=== PATIENT | male | born 1980 | race American Indian/Alaskan Native ===

== ENCOUNTER 2016-04-04 16:22 | Emergency (ER) | payer MEDICARE ==
[2016-04-04 17:23] VITALS: BP 158/100
[2016-04-04] MEDS ORDERED: BOOSTRIX IM ONE (17:58)
[2016-04-04] MEDS ORDERED: TRIPLE ANTIBIOTIC TP ONE (18:00)
[2016-04-04] MEDS ORDERED: KEFLEX PO ONE (18:00)
--- NOTE | 2016-04-04 18:02 | Emergency Department Report ---
ED Laceration HPI - HPI Chief Complaint: Wound/Laceration Stated Complaint: LEFT ARM LAC 3 DAYS AGO Time Seen by Provider: 04/04/16 17:32 Occurred When: Before Yesterday Location: Upper Extremity Severity: mild Tetanus Status: Not up to Date Laceration Symptoms: No Foreign Body Sensation, No Numbness, No Weakness, No Pain Other History: 35-year-old male past medical history bipolar disorder presents with complaint of superficial laceration to left forearm volar aspect. Visible linear superficial laceration approximately 4 cm in length. Patient states that he was throwing out a piece of wood with a nail sticking out approximately 3 days ago. As he tossed a piece of wood the nail scraped his forearm. Minimal to no bleeding, barely any subcutaneous tissue exposed. Wound is not gaping. Patient did not seek medical attention until today because he thought it was very superficial. Site has become slightly red patient denies any pus drainage no fever no chills no numbness or tingling or dysfunction reported by patient and left forearm and wrist patient denies any other injuries, states he does not know when he had his last tetanus shot ED Review of Systems ROS: Stated complaint: LEFT ARM LAC 3 DAYS AGO Other details as noted in HPI Constitutional: denies: chills, fever Eyes: denies: eye pain, eye discharge, vision change ENT: denies: ear pain, throat pain Respiratory: denies: cough, shortness of breath, wheezing Cardiovascular: denies: chest pain, palpitations Endocrine: no symptoms reported Gastrointestinal: denies: abdominal pain, nausea, diarrhea Genitourinary: denies: urgency, dysuria Musculoskeletal: denies: back pain, joint swelling, arthralgia Skin: as per HPI. denies: rash, lesions Neurological: denies: headache, weakness, paresthesias Psychiatric: denies: anxiety, depression Hematological/Lymphatic: denies: easy bleeding, easy bruising ED Past Medical Hx - Past Medical History Hx Hypertension: Yes Hx Psychiatric Treatment: Yes (bipolar, paranoid schizophrenic.) - Surgical History Hx Appendectomy: Yes Additional Surgical History: bowel obstruction repair - Social History Smoking Status: Current Every Day Smoker Substance Use Type: Alcohol, Marijuana - Medications Home Medications: Home Medications Medication Instructions Recorded Confirmed Last Taken Type Clotrimazole 1% [Lotrimin 1%] 1 applic TP BID #1 tube 10/03/14 05/06/15 Unknown Rx Hydrocortisone 1% [Hydrocortisone 1 applicatio TP TID #1 tube 12/05/14 05/06/15 Unknown Rx 1% CREAM] Divalproex Dr [DepaKOTE DR] 500 mg PO BID 05/06/15 05/06/15 Unknown History Paliperidone Palmitate [Invega 78 mg IM QMONTH 05/06/15 05/06/15 04/20/15 History Sustenna] QUEtiapine [SEROquel] 250 mg PO DAILY 05/06/15 05/06/15 Unknown History Cephalexin [Keflex] 500 mg PO Q12HR #14 cap 04/04/16 Unknown Rx Ibuprofen [Motrin] 400 mg PO Q8H PRN #20 tablet 04/04/16 Unknown Rx Neomy/Baci/Polymyx Oint [Triple 15 gm TP BID #1 oint 04/04/16 Unknown Rx Antibiotic] Sulfamethoxazole/Trimethoprim 1 each PO BID #14 tablet 04/04/16 Unknown Rx [Bactrim DS TAB] Laceration Physical Exam - Exam General: Vital signs noted. No distress. Alert and acting appropriately. Wound Length (cm): 4 Laceration Location: Upper Extremity Full Body Front + Back: 1 - 4cm superficial laceration volar left mid forearm, no subQ tissue exposed, minro surroundign erythema, no fluctuance. Laceration Exam: Yes Normal Distal CMS, No Foreign Body, No Exposed Tendon, Vessel, or Nerve, No Tendon Injury ED Course Vital Signs 04/04/16 17:10 Temperature 98.9 F Pulse Rate 57 L Respiratory 18 Rate Blood Pressure 158/100 O2 Sat by Pulse 99 Oximetry ED Medical Decision Making - Medical Decision Making A/P: Simple superficial laceration/deep abrasion, early cellulitis 1-as patient states that this occurred 3 days ago and laceration is very superficial and linear and not gaping no indication for closure at this time. Wound cleaned with povidone-iodine iodine and saline. Wound is more of a deep abrasion than a significant laceration 2-triple antibiotic ointment placed over the site with gauze wrap 3-Tdap updated today 4-Bactrim and Keflex twice a day 1 week. I'm placing patient on antibiotics because he states that this piece of wood was extremely dirty and in a junkyard. Patient also has signs of very mild early cellulitis including erythema and hyperesthesia surrounding site immediately adjacent no palpable abscess or fluctuance 5- I advised patient to return to the ED if redness worsens or if he has any pus drainage or worsening induration and site Critical care attestation.: If time is entered above; I have spent that time in minutes in the direct care of this critically ill patient, excluding procedure time. ED Disposition Clinical Impression: Forearm laceration Qualifiers: Encounter type: initial encounter Laterality: left Qualified Code(s): S51.812A - Laceration without foreign body of left forearm, initial encounter Abrasion forearm Qualifiers: Encounter type: initial encounter Laterality: left Qualified Code(s): S50.812A - Abrasion of left forearm, initial encounter Disposition: DISCHARGED TO HOME OR SELFCARE Is pt being admited?: No Does the pt Need Aspirin: No Condition: Stable Instructions: Diphtheria/Tetanus Vaccine (Injection), Laceration (ED), Acute Wound Care (ED), Abrasion (ED) Prescriptions: Sulfamethoxazole/Trimethoprim [Bactrim DS TAB] 1 each PO BID #14 tablet Cephalexin [Keflex] 500 mg PO Q12HR #14 cap Ibuprofen [Motrin] 400 mg PO Q8H PRN #20 tablet PRN Reason: Pain Neomy/Baci/Polymyx Oint [Triple Antibiotic] 15 gm TP BID #1 oint Referrals: PRIMARY CARE, [Primary Care Provider] - 3-5 Days Time of Disposition: 18:24
== END 2016-04-04 18:31 | disposition home or self-care (01) ==
LOC: ED 16:22
DX: S51.812A Laceration without foreign body of left forearm, initial encounter (principal); S50.812A Abrasion of left forearm, initial encounter; I10 Essential (primary) hypertension; F31.9 Bipolar disorder, unspecified; F20.9 Schizophrenia, unspecified; F17.200 Nicotine dependence, unspecified, uncomplicated; F12.10 Cannabis abuse, uncomplicated; W45.8XXA Other foreign body or object entering through skin, initial encounter; Y93.9 Activity, unspecified; Y92.9 Unspecified place or not applicable; Y99.9 Unspecified external cause status
CPT/HCPCS: 90471; 90715; A6250

== ENCOUNTER 2016-11-02 12:28 | Emergency (ER) | payer MEDICARE ==
[2016-11-02 13:08] LABS: Urine Drugs of Abuse Note Disclamer
[2016-11-02 13:21] LABS: Bilirubin,Urine NEG (Negative); Blood,Urine NEG (Negative); Ketones,Urine NEG (Negative); Leukocyte Esterase,Urine NEG (Negative); Mucus,Urine 3+ /HPF; Nitrite,Urine NEG (Negative)
[2016-11-02 13:44] LABS: Basophils % (Auto) 1.2 % (0.0-1.8); Eosinophils % (Auto) 3.2 % (0.0-4.3); Hematocrit 40.6 % (35.5-45.6); Hemoglobin 13.2 gm/dl (11.8-15.2); Mean Corpuscular HGB Conc 33 % (32-34); Mean Corpuscular Hemoglobin 27 pg (28-32); Mean Corpuscular Volume 83 fl (84-94); Platelet Count 203 K/mm3 (140-440); Red Blood Count 4.88 M/mm3 (3.65-5.03); Red Cell Distribution Width 15.5 % (13.2-15.2); White Blood Count 4.8 K/mm3 (4.5-11.0)
[2016-11-02 13:58] LABS: Anion Gap 18 mmol/L; Blood Urea Nitrogen 10 mg/dL (9-20); Calcium 8.8 mg/dL (8.4-10.2); Carbon Dioxide 23 mmol/L (22-30); Chloride 104.1 mmol/L (98-107); Glucose 88 mg/dL (75-100); Potassium 3.7 mmol/L (3.6-5.0); Sodium 141 mmol/L (137-145)
--- NOTE | 2016-11-02 15:16 | Emergency Department Report ---
ED Psych HPI - General Chief Complaint: Psych Stated Complaint: HOMICIDAL/MH Time Seen by Provider: 11/02/16 14:40 Source: patient Mode of arrival: Ambulatory - History of Present Illness Initial Comments: Patient is a 36-year-old male with a known psychiatric history here with complaints of homicidal ideation. Patient states that he has been through a very difficult time lately and is feeling like he was harmed his roommate. He is also having some occasional auditory hallucinations and is paranoid. States he has not been taking his psychiatric medications for some time. No chest pain shortness of breath fever chills cough nausea vomiting. MD Complaint: other (homicidal ideation) Associated Psychiatric Symptoms: depression, homicidal ideation Quality: constant Improves With: none Worsens With: none Context: significant life stressor Associated Symptoms: insomnia. denies: confusion, headache, shortness of breath , nausea, vomiting, syncope, other - Related Data Home Medications Medication Instructions Recorded Confirmed Last Taken Divalproex Dr [DepaKOTE DR] 500 mg PO BID 05/06/15 05/06/15 Unknown Paliperidone Palmitate [Invega 78 mg IM QMONTH 05/06/15 05/06/15 04/20/15 Sustenna] QUEtiapine [SEROquel] 250 mg PO DAILY 05/06/15 05/06/15 Unknown Previous Rx's Medication Instructions Recorded Last Taken Type Clotrimazole 1% [Lotrimin 1%] 1 applic TP BID #1 tube 10/03/14 Unknown Rx Hydrocortisone 1% [Hydrocortisone 1 applicatio TP TID #1 tube 12/05/14 Unknown Rx 1% CREAM] Cephalexin [Keflex] 500 mg PO Q12HR #14 cap 04/04/16 Unknown Rx Ibuprofen [Motrin] 400 mg PO Q8H PRN #20 tablet 04/04/16 Unknown Rx Neomy/Baci/Polymyx Oint [Triple 15 gm TP BID #1 oint 04/04/16 Unknown Rx Antibiotic] Sulfamethoxazole/Trimethoprim 1 each PO BID #14 tablet 04/04/16 Unknown Rx [Bactrim DS TAB] Allergies Allergy/AdvReac Type Severity Reaction Status Date / Time baclofen Allergy Unknown Verified 11/02/16 12:38 lithium Allergy TWITCH Verified 11/02/16 12:38 ED Review of Systems ROS: Stated complaint: HOMICIDAL/MH Other details as noted in HPI Comment: All other systems reviewed and negative Constitutional: denies: chills, fever Eyes: denies: eye pain, eye discharge, vision change ENT: denies: ear pain, throat pain Respiratory: denies: cough, shortness of breath, wheezing Cardiovascular: denies: chest pain, palpitations Endocrine: no symptoms reported Gastrointestinal: denies: abdominal pain, nausea, diarrhea Genitourinary: denies: urgency, dysuria Musculoskeletal: denies: back pain, joint swelling, arthralgia Skin: denies: rash, lesions Neurological: denies: headache, weakness, paresthesias Psychiatric: depression, auditory hallucinations, homicidal thoughts. denies: anxiety Hematological/Lymphatic: denies: easy bleeding, easy bruising ED Past Medical Hx - Past Medical History Previous Medical History?: Yes Hx Hypertension: Yes Hx Psychiatric Treatment: Yes (bipolar, paranoid schizophrenic.) - Surgical History Past Surgical History?: Yes Hx Appendectomy: Yes Additional Surgical History: bowel obstruction repair - Family History Family history: no significant - Social History Smoking Status: Current Every Day Smoker Substance Use Type: Cocaine, Marijuana - Medications Home Medications: Home Medications Medication Instructions Recorded Confirmed Last Taken Type Clotrimazole 1% [Lotrimin 1%] 1 applic TP BID #1 tube 10/03/14 05/06/15 Unknown Rx Hydrocortisone 1% [Hydrocortisone 1 applicatio TP TID #1 tube 12/05/14 05/06/15 Unknown Rx 1% CREAM] Divalproex [DepaKOSERGIO DR] 500 mg PO BID 05/06/15 05/06/15 Unknown History Paliperidone Palmitate [Invega 78 mg IM QMONTH 05/06/15 05/06/15 04/20/15 History Sustenna] QUEtiapine [SEROquel] 250 mg PO DAILY 05/06/15 05/06/15 Unknown History Cephalexin [Keflex] 500 mg PO Q12HR #14 cap 04/04/16 Unknown Rx Ibuprofen [Motrin] 400 mg PO Q8H PRN #20 tablet 04/04/16 Unknown Rx Neomy/Baci/Polymyx Oint [Triple 15 gm TP BID #1 oint 04/04/16 Unknown Rx Antibiotic] Sulfamethoxazole/Trimethoprim 1 each PO BID #14 tablet 04/04/16 Unknown Rx [Bactrim DS TAB] ED Physical Exam - General Limitations: No Limitations General appearance: alert, in no apparent distress - Head Head exam: Present: atraumatic, normocephalic - Eye Eye exam: Present: normal appearance - ENT ENT exam: Present: mucous membranes moist - Neck Neck exam: Present: normal inspection - Respiratory Respiratory exam: Present: normal lung sounds bilaterally. Absent: respiratory distress - Cardiovascular Cardiovascular Exam: Present: regular rate, normal rhythm. Absent: systolic murmur, diastolic murmur, rubs, gallop - GI/Abdominal GI/Abdominal exam: Present: soft, normal bowel sounds - Rectal Rectal exam: Present: deferred - Extremities Exam Extremities exam: Present: normal inspection - Back Exam Back exam: Present: normal inspection - Neurological Exam Neurological exam: Present: alert, oriented X3 - Psychiatric Psychiatric exam: Present: normal affect, normal mood - Skin Skin exam: Present: warm, dry, intact, normal color. Absent: rash ED Course Vital Signs 11/02/16 11/02/16 12:39 14:54 Temperature 98.7 F 98.6 F Pulse Rate 58 L 50 L Respiratory 18 18 Rate Blood Pressure 141/70 Blood Pressure 143/76 [Right] O2 Sat by Pulse 99 99 Oximetry ED Medical Decision Making - Lab Data Result diagrams: 11/02/16 13:22 11/02/16 13:22 Laboratory Results - last 24 hr 11/02/16 11/02/16 11/02/16 13:22 13:22 13:22 WBC 4.8 RBC 4.88 Hgb 13.2 Hct 40.6 MCV 83 L MCH 27 L MCHC 33 RDW 15.5 H Plt Count 203 Lymph % (Auto) 40.6 H Calloway % (Auto) 6.9 Eos % (Auto) 3.2 Baso % (Auto) 1.2 Lymph # 1.9 Calloway # 0.3 Eos # 0.2 Baso # 0.1 Seg Neutrophils % 48.1 Seg Neutrophils # 2.3 Sodium 141 Potassium 3.7 Chloride 104.1 Carbon Dioxide 23 Anion Gap 18 BUN 10 Creatinine 0.8 Estimated GFR > 60 BUN/Creatinine Ratio 12.50 Glucose 88 Calcium 8.8 Urine Color Urine Turbidity Urine pH Ur Specific Atlantic Urine Protein Urine Glucose (UA) Urine Ketones Urine Blood Urine Nitrite Urine Bilirubin Urine Urobilinogen Ur Leukocyte Esterase Urine WBC (Auto) Urine RBC (Auto) Urine Mucus Urine Opiates Screen Urine Methadone Screen Ur Barbiturates Screen Ur Phencyclidine Scrn Ur Amphetamines Screen U Benzodiazepines Scrn Urine Cocaine Screen U Marijuana (THC) Screen Drugs of Abuse Note Plasma/Serum Alcohol < 0.01 11/02/16 11/02/16 Unknown Unknown WBC RBC Hgb Hct MCV MCH MCHC RDW Plt Count Lymph % (Auto) Calloway % (Auto) Eos % (Auto) Baso % (Auto) Lymph # Calloway # Eos # Baso # Seg Neutrophils % Seg Neutrophils # Sodium Potassium Chloride Carbon Dioxide Anion Gap BUN Creatinine Estimated GFR BUN/Creatinine Ratio Glucose Calcium Urine Color Yellow Urine Turbidity Clear Urine pH 5.0 Ur Specific Atlantic 1.030 Urine Protein 30 mg/dl Urine Glucose (UA) Neg Urine Ketones Neg Urine Blood Neg Urine Nitrite Neg Urine Bilirubin Neg Urine Urobilinogen 4.0 Ur Leukocyte Esterase Neg Urine WBC (Auto) 1.0 Urine RBC (Auto) 2.0 Urine Mucus 3+ Urine Opiates Screen Presumptive negative Urine Methadone Screen Presumptive negative Ur Barbiturates Screen Presumptive negative Ur Phencyclidine Scrn Presumptive negative Ur Amphetamines Screen Presumptive negative U Benzodiazepines Scrn Presumptive negative Urine Cocaine Screen Presumptive negative U Marijuana (THC) Screen Presumptive positive Drugs of Abuse Note Disclamer Plasma/Serum Alcohol - Medical Decision Making 36-year-old male here with homicidal ideation and depression. Patient will be placed on a 1013 hold and evaluated by psychiatry. He is medically clear for psychiatric evaluation at this point. Critical care attestation.: If time is entered above; I have spent that time in minutes in the direct care of this critically ill patient, excluding procedure time. ED Disposition Clinical Impression: Homicidal ideation, Depression Disposition: [id number] PSY HOSP/PSY UNIT Is pt being admited?: No Condition: Stable Referrals: PRIMARY CARE, [Primary Care Provider] - 3-5 Days
--- NOTE | 2016-11-03 10:48 | Consultation ---
History of Present Illness - Reason for Consult Consult date: 11/03/16 Reason for consult: Mental Health Evaluation Requesting physician: FRANCIS WARREN - Chief Complaint Chief complaint: "I just need help with how I feel" - History of Present Psychiatric Illness Patient is a 36-year-old male with a known psychiatric history here with complaints of HI's. Today patient is calm and cooperative during the assessment. He stated that he had a argument with the his long term ([employer] [facility]) director "[employer] He stated that this argument took him "over the top" because he was already dealing with other stressors (seeing demons, hearing voices, and being irritable). Per the patient, these perceptional disturbances has been active for months, but increased the last week. He stated that the the demons he see and the voices he hear tell him that he "isn't worth anything" and to kill himself. Also, he stated that the voices were telling him to "kill" Pastor Craft. The patient stated that he does not want to return to the long term, because he don't trust the director. He stated that he have not seen a psychiatrist or taking his medications in 6 months. Patient stated that he took Seroquel, Risperdal, and the Invega injection in the past. He stated that the Seroquel was effective. He could not confirm or deny SI's, but admit to HI's and AVH's. He stated sleep disturbance (problems starting sleep), but denies a poor appetite. He admit to smoking marijuana often and denies excessive alcohol consumption (etoh). Medications and Allergies Allergies Allergy/AdvReac Type Severity Reaction Status Date / Time baclofen Allergy Unknown Verified 11/02/16 12:38 lithium Allergy TWITCH Verified 11/02/16 12:38 Home Medications Medication Instructions Recorded Confirmed Last Taken Type Clotrimazole 1% [Lotrimin 1%] 1 applic TP BID #1 tube 10/03/14 05/06/15 Unknown Rx Hydrocortisone 1% [Hydrocortisone 1 applicatio TP TID #1 tube 12/05/14 05/06/15 Unknown Rx 1% CREAM] Divalproex [Ron PALMA] 500 mg PO BID 05/06/15 05/06/15 Unknown History Paliperidone Palmitate [Invega 78 mg IM QMONTH 05/06/15 05/06/15 04/20/15 History Sustenna] QUEtiapine [SEROquel] 250 mg PO DAILY 05/06/15 05/06/15 Unknown History Cephalexin [Keflex] 500 mg PO Q12HR #14 cap 04/04/16 Unknown Rx Ibuprofen [Motrin] 400 mg PO Q8H PRN #20 tablet 04/04/16 Unknown Rx Neomy/Baci/Polymyx Oint [Triple 15 gm TP BID #1 oint 04/04/16 Unknown Rx Antibiotic] Sulfamethoxazole/Trimethoprim 1 each PO BID #14 tablet 04/04/16 Unknown Rx [Bactrim DS TAB] Past psychiatric history - Past Medical History Past Medical History: hypertension Past Surgical History: No surgical history - past Psychiatric treatment and history Psych: Bipolar, Psychosis psychiatric treatment history: Inpatient psy setting 6 months ago in [place]. Denies a fam psy hx. - Social History Social history: other (Reside in a long term) Mental Status Exam - Vital signs Last Vital Signs Temp 98.6 F 11/02/16 14:54 Pulse 80 11/03/16 00:07 Resp 17 11/03/16 00:07 BP 130/78 11/03/16 00:07 Pulse Ox 99 11/03/16 00:07 - Exam Narrative exam: ROS: (+) psychosis/manic MSE: Appearance: calm, cooperative Behavior: regular eye contact Speech: regular rate and tone Mood: "just tired" Affect: labile Thought Process: circumstantial Thought Content: admit to multiple percerptional disturbances Motor Activity: ambulatory Cognition: A/Ox 3 Insight: variable Judgment: limited Results Result Diagrams: 11/02/16 13:22 11/02/16 13:22 Abnormal lab results 11/02/16 Range/Units 13:22 MCV 83 L (84-94) fl MCH 27 L (28-32) pg RDW 15.5 H (13.2-15.2) % Lymph % (Auto) 40.6 H (13.4-35.0) % All other labs normal. Assessment and Plan Assessment and plan: Impression: Historical Dx: Bipolar DO. Unspecified Mood DO with psychotic features. Substance Use DO (marijuana). Today patient is calm and cooperative during the assessment. DDx: Schizoaffective DO Recommendation/Plan: Continue 1013 with placement to inpatient psy services. Start Depakote 500 mg PO BID for mood and Seroquel 200 mg PO HS for mood/ psychotic symptoms. Discussed possible metabolic side effects of Seroquel with patient. [facility] Police notified of patient's HI's toward the long term director Pastor Hubbard [facility] Police rep stated that someone will come see patient in ER. LFT ordered.
[2016-11-03 11:47] LABS: Alanine Aminotransferase 20 units/L (7-56); Alkaline Phosphatase 66 units/L (35-129)
[2016-11-03 14:55] VITALS: BP 136/76
== END 2016-11-03 18:39 ==
LOC: EEVIPCON 12:28 → ED 12:28
DX: F31.9 Bipolar disorder, unspecified (principal); I10 Essential (primary) hypertension; F17.210 Nicotine dependence, cigarettes, uncomplicated; F12.10 Cannabis abuse, uncomplicated; F14.10 Cocaine abuse, uncomplicated; Z88.8 Allergy status to other drugs, medicaments and biological substances
CPT/HCPCS: 36415; 80048; 80164; 80307; 81001; 84075; 84450; 84460; 85025; 99285; G0480; 80320

== ENCOUNTER 2017-01-08 00:24 | Emergency (ER) | payer MEDICARE ==
[2017-01-08 01:07] VITALS: BP 144/75
[2017-01-08 01:55] LABS: Anion Gap 16 mmol/L; BUN/Creatinine Ratio 11; Blood Urea Nitrogen 9 mg/dL (9-20); Calcium 9.6 mg/dL (8.4-10.2); Carbon Dioxide 29 mmol/L (22-30); Chloride 102.2 mmol/L (98-107); Glucose 102 mg/dL (75-100); Potassium 3.4 mmol/L (3.6-5.0); Sodium 144 mmol/L (137-145)
[2017-01-08 02:05] LABS: Basophils % (Auto) 1.2 % (0.0-1.8); Eosinophils % (Auto) 5.4 % (0.0-4.3); Hematocrit 43.3 % (35.5-45.6); Hemoglobin 14.8 gm/dl (11.8-15.2); Mean Corpuscular HGB Conc 34 % (32-34); Mean Corpuscular Hemoglobin 29 pg (28-32); Mean Corpuscular Volume 84 fl (84-94); Platelet Count 221 K/mm3 (140-440); Red Blood Count 5.19 M/mm3 (3.65-5.03); Red Cell Distribution Width 15.5 % (13.2-15.2); White Blood Count 5.8 K/mm3 (4.5-11.0)
[2017-01-08 03:36] LABS: Urine Drugs of Abuse Note Disclamer
[2017-01-08 03:46] LABS: Bilirubin,Urine NEG (Negative); Blood,Urine NEG (Negative); Ketones,Urine NEG (Negative); Leukocyte Esterase,Urine NEG (Negative); Mucus,Urine 3+ /HPF; Nitrite,Urine NEG (Negative); Protein,Urine <15 mg/dL mg/dL (Negative)
== END 2017-01-08 05:22 | disposition left against medical advice (07) ==
LOC: ED 00:24
DX: Z53.21 Procedure and treatment not carried out due to patient leaving prior to being seen by health care provider (principal)
CPT/HCPCS: 36415; 80048; 80307; 81001; 85025; G0480; 80320

== ENCOUNTER 2017-07-08 10:49 | Emergency (ER) | payer MEDICARE ==
[2017-07-08 10:55] VITALS: BP 150/52
== END 2017-07-08 12:07 | disposition left against medical advice (07) ==
LOC: ED 10:49
DX: B35.3 Tinea pedis (principal); Z53.21 Procedure and treatment not carried out due to patient leaving prior to being seen by health care provider

== ENCOUNTER 2017-12-04 09:52 | Emergency (ER) | payer MEDICARE ==
[2017-12-04 10:09] VITALS: BP 120/72
== END 2017-12-04 14:05 | disposition left against medical advice (07) ==
LOC: ED 09:52
DX: Z53.21 Procedure and treatment not carried out due to patient leaving prior to being seen by health care provider (principal)

== ENCOUNTER 2017-12-25 01:23 | Emergency (ER) | payer MEDICARE ==
[2017-12-25 03:01] LABS: Bilirubin,Urine NEG (Negative); Blood,Urine SM (Negative); Color,Urine Yellow (Yellow); Mucus,Urine 1+ /HPF; Protein,Urine <15 mg/dL mg/dL (Negative); RBC,Urine < 1.0 /HPF (0.0-6.0)
[2017-12-25 03:06] LABS: Basophils # (Auto) 0.1 K/mm3 (0.0-0.1); Basophils % (Auto) 1.3 % (0.0-1.8); Eosinophils # (Auto) 0.2 K/mm3 (0.0-0.4); Eosinophils % (Auto) 3.8 % (0.0-4.3); Hematocrit 41.2 % (35.5-45.6); Hemoglobin 13.8 gm/dl (11.8-15.2); Lymphocytes # (Auto) 2.5 K/mm3 (1.2-5.4); Lymphocytes % (Auto) 46.6 % (13.4-35.0); Mean Corpuscular HGB Conc 34 % (32-34); Mean Corpuscular Hemoglobin 28 pg (28-32); Mean Corpuscular Volume 83 fl (84-94); Monocytes # (Auto) 0.3 K/mm3 (0.0-0.8); Monocytes % (Auto) 6.5 % (0.0-7.3); Platelet Count 242 K/mm3 (140-440); Red Blood Count 4.96 M/mm3 (3.65-5.03); Red Cell Distribution Width 15.4 % (13.2-15.2)
[2017-12-25 03:08] LABS: Amphetamine Screen,Urine PRESUMPTIVE NEGATIVE; Benzodiazepines Screen,Urine PRESUMPTIVE NEGATIVE; Cocaine Screen,Urine PRESUMPTIVE NEGATIVE; Methadone Screen,Urine PRESUMPTIVE NEGATIVE; Opiate Screen,Urine PRESUMPTIVE NEGATIVE
[2017-12-25 03:19] LABS: BUN/Creatinine Ratio 10; Blood Urea Nitrogen 8 mg/dL (9-20); Calcium 9.5 mg/dL (8.4-10.2); Hemolysis Index 11
[2017-12-25 03:34] LABS: Cannabinoid Screen,Urine PRESUMPTIVE POSITIVE
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
[2017-12-25 14:56] VITALS: BP 119/51
== END 2017-12-25 14:35 ==
LOC: ED 01:23
DX: F20.0 Paranoid schizophrenia (principal); F31.9 Bipolar disorder, unspecified; F29 Unspecified psychosis not due to a substance or known physiological condition; F39 Unspecified mood [affective] disorder; F12.10 Cannabis abuse, uncomplicated; I10 Essential (primary) hypertension; Z88.8 Allergy status to other drugs, medicaments and biological substances; Z90.89 Acquired absence of other organs
CPT/HCPCS: 36415; 80048; 80164; 80307; 81001; 85025; 99285; G0480; 80320

== ENCOUNTER 2018-08-02 19:50 | Emergency (ER) | payer MEDICARE ==
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
[2018-08-02 20:30] LABS: Bilirubin,Urine NEG (Negative); Blood,Urine NEG (Negative); Color,Urine Yellow (Yellow); Mucus,Urine FEW /HPF; Protein,Urine <15 mg/dL mg/dL (Negative); Urobilinogen,Urine < 2.0 mg/dL (<2.0)
[2018-08-02 20:32] LABS: Amphetamine Screen,Urine PRESUMPTIVE NEGATIVE; Benzodiazepines Screen,Urine PRESUMPTIVE NEGATIVE; Cocaine Screen,Urine PRESUMPTIVE NEGATIVE; Methadone Screen,Urine PRESUMPTIVE NEGATIVE; Opiate Screen,Urine PRESUMPTIVE NEGATIVE
--- NOTE | 2018-08-02 20:42 | Emergency Department Report ---
ED Psych HPI - General Chief Complaint: Psych Stated Complaint: MH EVAL/HOMICIDAL/SUICIDAL Time Seen by Provider: 08/02/18 20:04 Source: patient Mode of arrival: Ambulatory - History of Present Illness Initial Comments: Patient is a 38-year-old male up since emergency room for suicidal homicidal ideation. Patient states that the staff overrule wound was dressed with the became suicidal and homicidal. Patient states he plans to stab himself and other people. Patient states he is depressed and anxious. MD Complaint: suicidal ideation, feels depressed -: Sudden Associated Psychiatric Symptoms: depression, suicidal ideation, homicidal ideation, racing thoughts History of same: Yes Quality: constant Improves With: medication, therapy Worsens With: other Context: significant life stressor Associated Symptoms: denies other symptoms. denies: confusion, headache, shortness of breath, nausea, vomiting, syncope, insomnia Treatments Prior to Arrival: placed on mental he If Self Harm: admits thoughts of, has plan - Related Data Home Medications Medication Instructions Recorded Confirmed Last Taken Divalproex ER [DepaKOTE ER] 500 mg PO HS 08/02/18 08/02/18 Unknown Quetiapine Fumarate [SEROquel] 50 mg PO HS 08/02/18 08/02/18 Unknown Ziprasidone [Geodon] 40 mg PO HS 08/02/18 08/02/18 Unknown amLODIPine [Norvasc] 10 mg PO DAILY 08/02/18 08/02/18 Unknown Allergies Allergy/AdvReac Type Severity Reaction Status Date / Time baclofen Allergy Unknown Verified 07/08/17 10:54 lithium Allergy TWITCH Verified 07/08/17 10:54 ED Review of Systems ROS: Stated complaint: MH EVAL/HOMICIDAL/SUICIDAL Other details as noted in HPI Constitutional: denies: chills, fever Eyes: denies: eye pain, eye discharge, vision change ENT: denies: ear pain, throat pain Respiratory: denies: cough, shortness of breath, wheezing Cardiovascular: denies: chest pain, palpitations Endocrine: no symptoms reported Gastrointestinal: denies: abdominal pain, nausea, diarrhea Genitourinary: denies: urgency, dysuria Musculoskeletal: denies: back pain, joint swelling, arthralgia Skin: denies: rash, lesions Neurological: denies: headache, weakness, paresthesias Psychiatric: depression, homicidal thoughts, suicidal thoughts. denies: anxiety Hematological/Lymphatic: denies: easy bleeding, easy bruising ED Past Medical Hx - Past Medical History Previous Medical History?: Yes Hx Hypertension: Yes Hx Psychiatric Treatment: Yes (bipolar, paranoid schizophrenic.) - Surgical History Past Surgical History?: Yes Hx Appendectomy: Yes Additional Surgical History: bowel obstruction repair - Family History Family history: no significant - Social History Smoking Status: Never Smoker Substance Use Type: Alcohol, Marijuana - Medications Home Medications: Home Medications Medication Instructions Recorded Confirmed Last Taken Type Divalproex ER [DepaKOTE ER] 500 mg PO HS 08/02/18 08/02/18 Unknown History Quetiapine Fumarate [SEROquel] 50 mg PO HS 08/02/18 08/02/18 Unknown History Ziprasidone [Geodon] 40 mg PO HS 08/02/18 08/02/18 Unknown History amLODIPine [Norvasc] 10 mg PO DAILY 08/02/18 08/02/18 Unknown History ED Physical Exam - General Limitations: No Limitations General appearance: alert, in no apparent distress - Head Head exam: Present: atraumatic, normocephalic - Eye Eye exam: Present: normal appearance - ENT ENT exam: Present: mucous membranes moist - Neck Neck exam: Present: normal inspection - Respiratory Respiratory exam: Present: normal lung sounds bilaterally. Absent: respiratory distress - Cardiovascular Cardiovascular Exam: Present: regular rate, normal rhythm. Absent: systolic murmur, diastolic murmur, rubs, gallop - GI/Abdominal GI/Abdominal exam: Present: soft, normal bowel sounds - Rectal Rectal exam: Present: deferred - Extremities Exam Extremities exam: Present: normal inspection - Back Exam Back exam: Present: normal inspection - Neurological Exam Neurological exam: Present: alert, oriented X3 - Psychiatric Psychiatric exam: Present: anxious, homicidal ideation, suicidal ideation - Skin Skin exam: Present: warm, dry, intact, normal color. Absent: rash ED Course Vital Signs 08/02/18 08/02/18 08/02/18 19:59 20:05 20:30 Temperature 98.3 F 98.3 F 98.3 F Pulse Rate 90 87 81 Respiratory 20 20 18 Rate Blood Pressure 147/78 147/78 Blood Pressure 136/84 [Left] O2 Sat by Pulse 99 99 97 Oximetry - Reevaluation(s) Reevaluation #1: Patient placed on 1013. Mental health ordered 08/02/18 20:42 pt is medically cleared. Patient will remain on 1013 until accepted into appropriate psychiatric facility. 08/03/18 00:34 ED Medical Decision Making - Lab Data Result diagrams: 08/02/18 20:30 08/02/18 20:30 - Medical Decision Making Patient is a 38-year-old male with suicidal homicidal ideation. Patient presented 13. Patient had labs done. Labs unremarkable. Patient is medically cleared for remain in the ER on A 1013. - Differential Diagnosis suicidal ideation. Homicidal ideations. Critical care attestation.: If time is entered above; I have spent that time in minutes in the direct care of this critically ill patient, excluding procedure time. ED Disposition Clinical Impression: Suicide ideation, Homicidal ideations Disposition: DC/TX-65 PSY HOSP/PSY UNIT Is pt being admited?: No Does the pt Need Aspirin: No Condition: Stable Additional Instructions: Patient is medically cleared Referrals: ROBERT FREEMAN MD [Primary Care Provider] - 3-5 Days Time of Disposition: 00:35
[2018-08-02 20:46] LABS: Cannabinoid Screen,Urine PRESUMPTIVE NEGATIVE
[2018-08-02 20:59] LABS: Basophils # (Auto) 0.1 K/mm3 (0.0-0.1); Eosinophils # (Auto) 0.2 K/mm3 (0.0-0.4); Eosinophils % (Auto) 2.9 % (0.0-4.3); Hematocrit 42.2 % (35.5-45.6); Hemoglobin 14.1 gm/dl (11.8-15.2); Lymphocytes % (Auto) 34.9 % (13.4-35.0); Mean Corpuscular HGB Conc 33 % (32-34); Mean Corpuscular Volume 84 fl (84-94); Monocytes # (Auto) 0.3 K/mm3 (0.0-0.8); Monocytes % (Auto) 5.3 % (0.0-7.3); Platelet Count 263 K/mm3 (140-440); Red Blood Count 5.05 M/mm3 (3.65-5.03)
[2018-08-02 21:31] LABS: Alanine Aminotransferase 24 units/L (7-56); Albumin 4.9 g/dL (3.9-5); BUN/Creatinine Ratio 17; Blood Urea Nitrogen 15 mg/dL (9-20); Calcium 9.7 mg/dL (8.4-10.2); Hemolysis Index 1
[2018-08-03 02:56] VITALS: BP 113/61
== END 2018-08-03 06:45 ==
LOC: ED 19:50
DX: F31.9 Bipolar disorder, unspecified (principal); F20.0 Paranoid schizophrenia; I10 Essential (primary) hypertension; F12.90 Cannabis use, unspecified, uncomplicated; Z90.49 Acquired absence of other specified parts of digestive tract; Z88.8 Allergy status to other drugs, medicaments and biological substances
CPT/HCPCS: 36415; 80053; 80307; 81001; 85025; 99285; G0480; 80320

== ENCOUNTER 2019-11-18 20:33 | Emergency (ER) | payer MEDICARE | END 2019-11-18 20:45 | disposition left against medical advice (07) | LOC: ED 20:33 | DX: R45.850 Homicidal ideations (principal); Z53.21 Procedure and treatment not carried out due to patient leaving prior to being seen by health care provider ==

== ENCOUNTER 2021-01-03 00:04 | Emergency (ER) | payer MEDICARE ==
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
[2021-01-03 01:17] LABS: Bilirubin,Urine NEG (Negative); Blood,Urine SM (Negative); Color,Urine Yellow (Yellow); Mucus,Urine FEW /HPF; Protein,Urine <15 mg/dL mg/dL (Negative); WBC,Urine < 1.0 /HPF (0.0-6.0)
[2021-01-03 01:25] LABS: Amphetamine Screen,Urine PRESUMPTIVE NEGATIVE; Benzodiazepines Screen,Urine PRESUMPTIVE NEGATIVE; Cannabinoid Screen,Urine PRESUMPTIVE POSITIVE; Cocaine Screen,Urine PRESUMPTIVE POSITIVE; Methadone Screen,Urine PRESUMPTIVE NEGATIVE; Opiate Screen,Urine PRESUMPTIVE NEGATIVE
[2021-01-03 02:07] LABS: Basophils % (Auto) 0.4 % (0.0-1.8); Eosinophils # (Auto) 0.1 K/mm3 (0.0-0.4); Eosinophils % (Auto) 2.8 % (0.0-4.3); Hematocrit 45.5 % (35.5-45.6); Hemoglobin 14.8 gm/dl (11.8-15.2); Lymphocytes # (Auto) 2.1 K/mm3 (1.2-5.4); Mean Corpuscular HGB Conc 33 % (32-34); Mean Corpuscular Volume 85 fl (84-94); Monocytes # (Auto) 0.3 K/mm3 (0.0-0.8); Monocytes % (Auto) 6.4 % (0.0-7.3); Platelet Count 253 K/mm3 (140-440); Red Blood Count 5.38 M/mm3 (3.65-5.03); Red Cell Distribution Width 14.8 % (13.2-15.2)
[2021-01-03 02:31] LABS: BUN/Creatinine Ratio 11; Blood Urea Nitrogen 12 mg/dL (9-20); Calcium 9.3 mg/dL (8.4-10.2); Hemolysis Index 7
[2021-01-03] MEDS ORDERED: MELATONIN 5 MG TAB PO PRN (04:02)
[2021-01-03] MEDS ORDERED: hydrOXYzine PAMOATE 25 MG CAP PO ONE (04:02)
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
[2021-01-03] MEDS: DIVALPROEX DR 125 MG TAB PO SCH ×2 (11:05→21:49)
[2021-01-03] MEDS: QUEtiapine 25 MG TAB PO SCH ×2 (11:05→21:49)
--- NOTE | 2021-01-03 11:52 | Emergency Department Report ---
Blank Doc - Documentation Documentation: This patient presented late last night, around 1 AM, for a mental health evalu ation. He has a history of schizoaffective disorder and has been having suicidal ideations with a plan to shoot or stab himself. The patient was seen by the psychiatric nurse practitioner who has started him on antipsychotic medication and recommends inpatient stabilization. No events since the patient's arrival. Vital signs reassuring including being afebrile. Labs have been reviewed and are mostly unremarkable except for UDS positive for cocaine and marijuana. We will continue to monitor this patient during his ED course.
[2021-01-03 20:01] VITALS: BP 144/76
[2021-01-03] MEDS ORDERED: traZODone 50 MG TAB PO SCH (22:00)
== END 2021-01-04 06:48 ==
LOC: ED 00:04 → EEVIPCON 00:04 → ED 01-04 06:48
DX: R45.851 Suicidal ideations (principal); R45.850 Homicidal ideations; Z20.822 Contact with and (suspected) exposure to COVID-19; Z13.30 Encounter for screening examination for mental health and behavioral disorders, unspecified; F14.10 Cocaine abuse, uncomplicated; F12.10 Cannabis abuse, uncomplicated; I10 Essential (primary) hypertension; K21.9 Gastro-esophageal reflux disease without esophagitis; F31.9 Bipolar disorder, unspecified; Z88.8 Allergy status to other drugs, medicaments and biological substances; Z79.899 Other long term (current) drug therapy; Z91.19 Patient's noncompliance with other medical treatment and regimen
CPT/HCPCS: 36415; 80048; 80307; 81001; 85025; 99285; Q0177; U0003; 80320; G0480

== ENCOUNTER 2021-07-05 23:44 | Emergency (ER) | payer MEDICARE ==
[2021-07-06 01:30] LABS: Basophils # (Auto) 0.1 K/mm3 (0.0-0.1); Eosinophils # (Auto) 0.3 K/mm3 (0.0-0.4); Eosinophils % (Auto) 5.3 % (0.0-4.3); Hematocrit 41.9 % (35.5-45.6); Hemoglobin 13.8 gm/dl (11.8-15.2); Lymphocytes # (Auto) 2.1 K/mm3 (1.2-5.4); Lymphocytes % (Auto) 34.4 % (13.4-35.0); Mean Corpuscular HGB Conc 33 % (32-34); Mean Corpuscular Volume 84 fl (84-94); Monocytes # (Auto) 0.3 K/mm3 (0.0-0.8); Monocytes % (Auto) 5.7 % (0.0-7.3); Platelet Count 258 K/mm3 (140-440); Red Blood Count 4.97 M/mm3 (3.65-5.03); Red Cell Distribution Width 14.5 % (13.2-15.2)
[2021-07-06 01:34] LABS: BUN/Creatinine Ratio 9; Blood Urea Nitrogen 8 mg/dL (9-20); Hemolysis Index 15
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
[2021-07-06 08:13] LABS: Bilirubin,Urine NEG (Negative); Blood,Urine SM (Negative); Color,Urine Yellow (Yellow); Protein,Urine <15 mg/dL mg/dL (Negative); RBC,Urine < 1.0 /HPF (0.0-6.0)
[2021-07-06 08:19] LABS: Amphetamine Screen,Urine Negative; Benzodiazepines Screen,Urine Negative; Cocaine Screen,Urine Negative; Methadone Screen,Urine Negative; Opiate Screen,Urine Negative
[2021-07-06 08:20] LABS: WBC,Urine < 1.0 /HPF (0.0-6.0)
[2021-07-06 08:32] LABS: Cannabinoid Screen,Urine Positive
[2021-07-06 09:15] VITALS: BP 152/74
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
[2021-07-06] MEDS ORDERED: QUEtiapine 25 MG TAB PO SCH (11:00)
[2021-07-06] MEDS ORDERED: DIVALPROEX DR 125 MG TAB PO SCH (11:00)
[2021-07-06] MEDS ORDERED: HALOPERIDOL LACTATE 5 MG/1 ML INJ IM PRN (13:45)
[2021-07-06] MEDS ORDERED: LORazepam 2 MG/ML VIAL IM PRN (13:45)
--- NOTE | 2021-07-06 13:49 | Event Note ---
Date: 07/06/21 The patient was evaluated in the emergency department for symptoms described in the history of present illness. He/she was evaluated in the context of the global COVID-19 pandemic, which necessitated consideration that the patient might be at risk for infection with the virus that causes COVID-19. Institutional protocols and algorithms that pertain to the evaluation of patients at risk for COVID-19 are in a state of rapid change based on information released by regulatory bodies including the CDC and federal and state organizations. These policies and algorithms were followed during the patient's care in the emergency department. Please note that these policies, procedures and recommendations changed on a rapid basis. Laboratory studies, vital signs, nursing documentation, ER documentation, and psychiatric documentation are reviewed and appreciated. Nursing team reports no acute events this morning or concerns. The patient is awake and ambulating and does not appear to be in any acute distress. The patient was deemed medically suitable for psychiatric disposition and placement during his initial ER evaluation. The patient continues to remain medically suitable for psychiatric placement and disposition. He is currently pending psychiatric placement.
[2021-07-06] MEDS ORDERED: amLODIPine 5 MG TAB PO SCH (15:00)
[2021-07-06] MEDS ORDERED: traZODone 50 MG TAB PO SCH (22:00)
[2021-07-07] MEDS ORDERED: amLODIPine 10 MG TAB PO SCH (10:00)
== END 2021-07-06 18:42 ==
LOC: ED 23:44
DX: F25.9 Schizoaffective disorder, unspecified (principal); F32.A Depression, unspecified; R45.851 Suicidal ideations; Z20.822 Contact with and (suspected) exposure to COVID-19
CPT/HCPCS: 36415; 80048; 80307; 81001; 85025; 99285; U0003; 80320; G0480